=== PATIENT | female | born 1975 | race African-American/Black ===

== ENCOUNTER 2017-09-15 03:44 | Emergency (ER) | payer OTHER ==
[2017-09-15] MEDS: DIPHTH/TET/ACEL PERTUSS (ADULT) 0.5 ML VIAL IM* (05:18)
== END 2017-09-15 05:30 | disposition home or self-care (01) ==
LOC: FTE 03:44
DX: S80.861A Insect bite (nonvenomous), right lower leg, initial encounter (principal); W57.XXXA Bitten or stung by nonvenomous insect and other nonvenomous arthropods, initial encounter; Y92.9 Unspecified place or not applicable; Z23 Encounter for immunization
CPT/HCPCS: 81025; 90471; 90715; 99283-25

== ENCOUNTER 2018-02-15 06:08 | Emergency (ER) | payer OTHER ==
[2018-02-15] MEDS: HYDROCODONE/APAP (5/325) TAB PO (06:51)
[2018-02-15] MEDS: ONDANSETRON (ODT) 4 MG TAB ODT (06:51)
[2018-02-15] MEDS: CLINDAMYCIN 300 MG INJ IM (07:00)
[2018-02-15] MEDS ORDERED: CLINDAMYCIN 600 MG INJ IM (07:00)
== END 2018-02-15 07:17 | disposition home or self-care (01) ==
LOC: FTE 06:08
DX: K04.7 Periapical abscess without sinus (principal); F17.210 Nicotine dependence, cigarettes, uncomplicated
CPT/HCPCS: 96372; 99284-25